=== PATIENT | female | born 1985 | race Two or more races ===

== ENCOUNTER 2020-01-11 22:10 | Emergency (ER) | payer MEDICAID ==
[~2020-01-11] VITALS: Ht 160 cm; Wt 77.1 kg
[2020-01-11] MEDS ORDERED: ACETAMINOPHEN500 M3 ORAL (22:21)
[2020-01-11 22:35] LABS: APPEARANCE,URINE SLIGHTLY CLOUDY; BILIRUBIN, URINE NEGATIVE (NEGATIVE); COLOR,URINE PALE YELLOW; GLUCOSE, URINE (UA) NEGATIVE (NEGATIVE); KETONES,URINE NEGATIVE (NEGATIVE); LEUKOCYTE ESTERASE ,URINE 2+ (NEGATIVE); NITRITE,URINE NEGATIVE (NEGATIVE); PH,URINE 7 (4.5-8.0); PROTEIN,URINE 1+ (NEGATIVE); UROBILINOGEN,URINE 1 MG/DL (0.0-1.0)
--- NOTE | 2020-01-11 22:56 | Emergency Room Report ---
History of Present Illness General Chief Complaint: Headache Source: Patient Present Illness HPI Patient is a 34-year-old female who presents after increased headache and intermittent episodes of right arm paresthesias. Patient had been having significant headaches for several months. She denies any prior work-up. Reports having near daily alcohol intake and states she drinks normally several tall cans of beer a day. Reports having intermittent episodes of right arm paresthesias associated with difficulty breathing. Denies any prior cardiac conditions. Denies being . Denies any leg pain or swelling. States she smokes marijuana daily. Allergies: Coded Allergies: No Known Allergies (Unverified , 01/11/20) COVID-19 Screening Contact w/high risk pt: No Recent Travel to affected area: No Experienced COVID-19 symptoms?: No COVID-19 Testing performed [employer] PAYABLE CLERK: No Patient History Past Medical History: see triage record Last Menstrual Period: 12/14/19 Now: No Reviewed Nursing Documentation: PMH: Agreed; PSxH: Agreed Nursing Documentation-PMH Past Medical History: No Stated History Review of Systems All Other Systems: negative except mentioned in HPI Physical Exam Vital Signs Date Time Temp Pulse Resp B/P (MAP) Pulse Ox O2 Delivery O2 Flow Rate FiO2 01/11/20 22:17 98.4 90 16 142/94 (110) 94 Room Air Sp02 EP Interpretation: reviewed, normal General Appearance: normal inspection, well appearing, no apparent distress, alert, GCS 15, non-toxic Head: atraumatic ENT: normal ENT inspection, hearing grossly normal, normal voice Neck: normal inspection, full range of motion, supple, no bony tend Respiratory: normal inspection, lungs clear, normal breath sounds, no respiratory distress, no retraction, no wheezing Cardiovascular #1: normal inspection, regular rate, rhythm, no edema Gastrointestinal: normal inspection, normal bowel sounds, non tender, soft, no guarding, no hernia Genitourinary: no CVA tenderness Musculoskeletal: normal inspection, back normal, normal range of motion Neurologic: alert, responsive, speech normal, normal inspection Psychiatric: normal inspection, judgement/insight normal, mood/affect normal Medical Decision Making Diagnostic Impression: Primary Impression: Headache Additional Impression: Urinary tract infection ER Course Patient presented for headache. Differential diagnosis included was not limited to urinary tract infection, preeclampsia, pseudotumor, alcohol withdrawal among others. Because of complexity of patient's case laboratory tests and imaging studies were ordered. Patient was noted to have some gradual headache which seems to be somewhat alcohol related. Patient was advised to stop alcohol intake. Patient's neurologic exam is nonfocal. CT imaging was ordered to patient's headache without prior work-up. Urine test was negative and patient has urinalysis which shows some evidence of urinary infection. Patient was given IV Rocephin. She was given IV magnesium.Patient' s blood sugar was noted to be normal. CT imaging read by radiology showed no evidence of acute intracranial process. Patient was advised to follow-up with her primary care physician for neurology referral. She is given prescription for medications for treatment of urinary infection. Patient was advised to abstain from alcohol.Patient was advised to return if worse. She advised not to drink alcohol and take Fioricet. The patient is advised to follow up with primary care doctor in 1-2 days. Patient is advised to return if any worsening condition or if any changes in status that are concerning. This report is dictated with V2contact envelope sealer software which may occasionally lead to discrepancies related to use of this software. Labs Test 01/11/20 22:25 Urine Color Pale yellow Urine Appearance Slightly cloudy Urine pH 7 (4.5-8.0) Urine Specific Ronda 1.010 (1.005-1.035) Urine Protein 1+ (NEGATIVE) Urine Glucose (UA) Negative (NEGATIVE) Urine Ketones Negative (NEGATIVE) Urine Blood 1+ (NEGATIVE) Urine Nitrite Negative (NEGATIVE) Urine Bilirubin Negative (NEGATIVE) Urine Urobilinogen 1 MG/DL (0.0-1.0) Urine Leukocyte Esterase 2+ (NEGATIVE) Urine RBC 2-4 /HPF (0 - 2) Urine WBC 15-20 /HPF (0 - 2) Urine Squamous Epithelial Cells Many /LPF (NONE/OCC) Urine Bacteria Moderate /HPF (NONE) Urine HCG, Qualitative Negative (NEGATIVE) Last Vital Signs Date Time Temp Pulse Resp B/P (MAP) Pulse Ox O2 Delivery O2 Flow Rate FiO2 01/11/20 22:17 98.4 90 16 142/94 (110) 94 Room Air Status: improved Disposition: HOME, SELF-CARE Condition: Stable Scripts Acetamin/Butalbital/Caffeine* (FIORICET*) 1 Ea Tab 1 TAB ORAL Q6H, #15 TAB 0 Refills Prov: Nigel Renae MD 01/11/20 Cephalexin* (KEFLEX*) 500 Mg Tablet 500 MG ORAL EVERY 6 HOURS, #28 CAP Prov: Nigel Renae MD 01/11/20 Referrals: NOT CHOSEN IPA/MD,REFERRING (PCP) Nigel Renae MD January 11, 2020 22:56
[2020-01-11] MEDS ORDERED: cefTRIAXone 1 GM in NS 55 ML IVPB ONE (23:00)
[2020-01-11 23:09] VITALS: BP 142/94
[2020-01-11 23:13] LABS: BASOPHILS % (AUTO) 0.9 % (0.0-2.0); HEMATOCRIT 42.2 % (37.0-47.0); HEMOGLOBIN 13.8 G/DL (12.0-16.0); LYMPHOCYTES % (AUTO) 23.8 % (20.0-45.0); MEAN CORPUSCULAR VOLUME 93 FL (80-99); MONOCYTES % (AUTO) 7.6 % (1.0-10.0); NEUTROPHILS % (AUTO) 66.7 % (45.0-75.0); PLATELET COUNT 372 K/UL (150-450); RED BLOOD COUNT 4.54 M/UL (4.20-5.40); RED CELL DISTRIBUTION WIDTH 12.7 % (11.6-14.8); WHITE BLOOD COUNT 12.2 K/UL (4.8-10.8)
[2020-01-11 23:20] LABS: ANION GAP 10 mmol/L (5-15); BLOOD UREA NITROGEN 13 mg/dL (7-18); CALCIUM 8.6 MG/DL (8.5-10.1); CARBON DIOXIDE 26 MMOL/L (21-32); CHLORIDE 105 MMOL/L (98-107); CREATININE 0.9 MG/DL (0.55-1.30); POTASSIUM 3.7 MMOL/L (3.5-5.1); SODIUM 141 MMOL/L (136-145)
--- NOTE | 2020-01-11 23:23 | Diagnostic Imaging Report ---
EXAM: CT Head Without Intravenous Contrast CLINICAL HISTORY: H/A TECHNIQUE: Axial computed tomography images of the head/brain without intravenous contrast. CTDI is 53 mGy and DLP is 1030 mGy-cm. One or more of the following dose reduction techniques were used: automated exposure control, adjustment of the mA and/or kV according to patient size, use of iterative reconstruction technique. COMPARISON: No relevant prior studies available. FINDINGS: Brain: Unremarkable. No hemorrhage. No significant white matter disease. No edema. Ventricles: Unremarkable. No ventriculomegaly. Bones/joints: Unremarkable. No acute fracture. Soft tissues: Unremarkable. Sinuses: Unremarkable as visualized. No acute sinusitis. Mastoid air cells: Unremarkable as visualized. No mastoid effusion. IMPRESSION: No acute intracranial pathology.
[2020-01-11 23:25] LABS: ALANINE AMINOTRANSFERASE 25 U/L (12-78); ALBUMIN 3.6 G/DL (3.4-5.0); ALBUMIN/GLOBULIN RATIO 0.8 (1.0-2.7); ALKALINE PHOSPHATASE 68 U/L (46-116); ASPARTATE AMINO TRANSFERASE 17 U/L (15-37); BILIRUBIN,TOTAL 0.2 MG/DL (0.2-1.0)
[2020-01-11] MEDS ORDERED: FIORICET1 EA ORAL (23:36)
[2020-01-11] MEDS ORDERED: CEPHALEXIN500 M1 ORAL (23:36)
[2020-01-11] MEDS ORDERED: Ketorolac 30mg Inj IV ONE (23:45)
[2020-01-12 00:16] VITALS: BP 135/87
[2020-01-12 00:30] VITALS: BP 135/87
== END 2020-01-12 00:30 | disposition home or self-care (01) ==
LOC: EMR 22:39
DX: R51 Headache (principal); N39.0 Urinary tract infection, site not specified; F12.90 Cannabis use, unspecified, uncomplicated; Z72.89 Other problems related to lifestyle
CPT/HCPCS: 36415; 70450; 80053; 81003; 81025; 83735; 85025; 87086; 96365; 96367; 96375; J0696; J1885; Z7502; 99284